=== PATIENT | female | born 1985 | race Hispanic/Latino ===

== ENCOUNTER 2016-12-19 09:58 | Emergency (ER) | payer OTHER ==
[2016-12-19 10:12] VITALS: BP 161/108
[2016-12-19 11:04] LABS: Basophils % (Auto) 0.2 % (0.0-1.8); Eosinophils % (Auto) 0.2 % (0.0-4.3); Hemoglobin 14.7 gm/dl (10.1-14.3); Mean Corpuscular HGB Conc 33 % (30-34); Mean Corpuscular Hemoglobin 33 pg (28-32); Mean Corpuscular Volume 97 fl (79-97); Platelet Count 126 K/mm3 (140-440); Red Blood Count 4.51 M/mm3 (3.65-5.03); Red Cell Distribution Width 12.8 % (13.2-15.2); White Blood Count 8.9 K/mm3 (4.5-11.0)
[2016-12-19 11:18] LABS: Anion Gap 26 mmol/L; Blood Urea Nitrogen 5 mg/dL (7-17); Calcium 9.1 mg/dL (8.4-10.2); Carbon Dioxide 17 mmol/L (22-30); Chloride 99.5 mmol/L (98-107); Glucose 85 mg/dL (65-100); Potassium 4.5 mmol/L (3.6-5.0); Sodium 138 mmol/L (137-145)
[2016-12-19 12:12] LABS: Bilirubin,Urine NEG (Negative); Blood,Urine NEG (Negative); Ketones,Urine NEG (Negative); Leukocyte Esterase,Urine NEG (Negative); Nitrite,Urine NEG (Negative); Protein,Urine <15 mg/dL mg/dL (Negative); Urobilinogen,Urine < 2.0 mg/dL (<2.0)
[2016-12-19 12:13] LABS: RBC,Urine < 1.0 /HPF (0.0-6.0); WBC,Urine < 1.0 /HPF (0.0-6.0)
== END 2016-12-19 20:00 | disposition left against medical advice (07) ==
LOC: ED 09:58
DX: R42 Dizziness and giddiness (principal); R51 Headache; Z53.21 Procedure and treatment not carried out due to patient leaving prior to being seen by health care provider
CPT/HCPCS: 36415; 80048; 81001; 81025; 85025

== ENCOUNTER 2017-03-21 16:30 | Emergency (ER) | payer SELFPAY ==
[2017-03-21 17:17] VITALS: BP 143/99
[2017-03-21] MEDS ORDERED: BOOSTRIX IM ONE (19:40)
[2017-03-21 20:05] LABS: Basophils % (Auto) 0.4 % (0.0-1.8); Eosinophils % (Auto) 0.3 % (0.0-4.3); Hematocrit 42.6 % (30.3-42.9); Hemoglobin 14.6 gm/dl (10.1-14.3); Mean Corpuscular HGB Conc 34 % (30-34); Mean Corpuscular Hemoglobin 33 pg (28-32); Mean Corpuscular Volume 97 fl (79-97); Platelet Count 127 K/mm3 (140-440); Red Cell Distribution Width 13.6 % (13.2-15.2); White Blood Count 7.2 K/mm3 (4.5-11.0)
[2017-03-21 20:14] LABS: INR 0.88 (0.87-1.13)
[2017-03-21 20:19] LABS: Partial Thromboplastin Time < 20.0 Sec. (24.2-36.6)
[2017-03-21 20:22] LABS: Albumin 4.9 g/dL (3.9-5); Albumin/Globulin Ratio 1.6 %; Alkaline Phosphatase 64 units/L (35-129); BUN/Creatinine Ratio 11.66; Blood Urea Nitrogen 7 mg/dL (7-17); Calcium 8.9 mg/dL (8.4-10.2); Carbon Dioxide 22 mmol/L (22-30); Chloride 105.9 mmol/L (98-107); Glucose 95 mg/dL (65-100); Sodium 147 mmol/L (137-145); Total Protein 7.9 g/dL (6.3-8.2)
[2017-03-21 20:32] LABS: Urine Drugs of Abuse Note Disclamer
[2017-03-21 20:51] LABS: Alanine Aminotransferase 50 units/L (7-56)
--- NOTE | 2017-03-21 20:54 | Emergency Department Report ---
ED General Adult HPI - General Chief complaint: Extremity Injury, Upper Stated complaint: POSS BROKEN FINGER Time Seen by Provider: 03/21/17 19:19 Source: patient, family (fiance ), EMS Mode of arrival: Ambulatory Limitations: No Limitations - History of Present Illness Initial comments: PT c/o L ring finger injury 2 weeks ago. PT states she was camping 2 weeks ago and she injured her finger when she was moving a tree. PT sates that she has had bruising and swelling to her L ring finger. PT states the swelling has recently gotten worse. PT also c/o red itchy rash under breasts x 5 days. PT states she had tried oatmeal baths without relief. Pt states she recently took in her neighbors kitten. PT states the kitten is still getting used to her and the kitten has scratched her. PT states she is concerned because she has lots of bruising on her arms from play wrestling with a friend yesterday. PT states she has a hx of panic attacks and anxiety, for her whole life. PT states that she is a pt [facility] but they took her off of Xanax ("the only thing that was helping") and put her on Zoloft 2 months ago. PT denies HI/SI. PT states "I don't want to hurt nobody" Complaint: finger injury/ rash/ bruising Location: upper extremity Severity scale (0 -10): 8 Quality: aching, sharp, constant Consistency: constant Improves with: none Worsens with: other (palpation, movement ) Associated Symptoms: denies: chest pain, cough, fever/chills, nausea/vomiting - Related Data Home Medications Medication Instructions Recorded Confirmed Last Taken busPIRone [Buspar] 10 mg PO BID 12/22/16 03/21/17 12/21/16 Quetiapine Fumarate [Seroquel] 100 mg PO HS 03/21/17 03/21/17 Unknown Sertraline HCl [Zoloft] 50 mg PO BID 03/21/17 03/21/17 Unknown Allergies Allergy/AdvReac Type Severity Reaction Status Date / Time No Known Allergies Allergy Verified 04/17/15 08:19 ED Review of Systems ROS: Stated complaint: POSS BROKEN FINGER Other details as noted in HPI Comment: All other systems reviewed and negative Constitutional: denies: chills, fever Respiratory: denies: cough, shortness of breath Cardiovascular: denies: chest pain Gastrointestinal: denies: abdominal pain Genitourinary: denies: dysuria, frequency, abnormal menses (pt states she is on implanon ) Skin: change in color, other (abrasions to bue, brusing to bue, rash under breasts.) Neurological: denies: headache Psychiatric: anxiety, other (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 denies: homicidal thoughts, suicidal thoughts Hematological/Lymphatic: easy bleeding (when brushing teeth ), easy bruising ED Past Medical Hx - Past Medical History Previous Medical History?: Yes Hx GERD: Yes Hx Psychiatric Treatment: Yes (panic attacks) Additional medical history: anxiety - Surgical History Past Surgical History?: Yes Additional Surgical History: left arm implanon placement - Family History Family history: no significant (from biological family ) - Social History Smoking Status: Current Every Day Smoker Substance Use Type: Alcohol, Prescribed - Medications Home Medications: Home Medications Medication Instructions Recorded Confirmed Last Taken Type busPIRone [Buspar] 10 mg PO BID 12/22/16 03/21/17 12/21/16 History Quetiapine Fumarate [Seroquel] 100 mg PO HS 03/21/17 03/21/17 Unknown History Sertraline HCl [Zoloft] 50 mg PO BID 03/21/17 03/21/17 Unknown History ED Physical Exam - General Limitations: No Limitations General appearance: alert, in no apparent distress, other (disheveled, smells of ETOH ) - Head Head exam: Present: atraumatic, normocephalic, normal inspection - Eye Eye exam: Present: normal appearance, PERRL, EOMI. Absent: scleral icterus, conjunctival injection, nystagmus Pupils: Present: normal accommodation - ENT ENT exam: Present: normal exam, normal external ear exam - Neck Neck exam: Present: normal inspection. Absent: tenderness - Respiratory Respiratory exam: Present: normal lung sounds bilaterally. Absent: respiratory distress - Cardiovascular Cardiovascular Exam: Present: regular rate, normal rhythm, normal heart sounds - GI/Abdominal GI/Abdominal exam: Present: soft. Absent: tenderness - Expanded Upper Extremity Exam Left Hand Wrist exam: Present: full ROM, tenderness (to left ring finger ), swelling , ecchymosis. Absent: dislocation, erythema Vascular: Present: radial pulse - Back Exam Back exam: Present: normal inspection, full ROM. Absent: tenderness, CVA tenderness (R), CVA tenderness (L) - Neurological Exam Neurological exam: Present: alert, oriented X3, CN II-XII intact, normal gait - Expanded Neurological Exam Expanded Neurological exam: Present: innattentive, other (pt has trouble remembering dates of injuries/ pt is speech is rapid and tangential but pt can be redirected ) Patient oriented to: Present: person, place, time Best Eye Response ([place]): (4) open spontaneously Best Motor Response ([place]): (6) obeys commands Best Verbal Response ([place]): (5) oriented [place] Total: 15 - Psychiatric Psychiatric exam: Present: normal affect, normal mood - Skin Skin exam: Present: warm, dry, normal color, erythema (yeast like rash under breasts), ecchymosis (multiple bruises to bue. multiple superfical abrasions to bue) ED Course Vital Signs 03/21/17 17:12 Temperature 98.2 F Pulse Rate 89 Respiratory 16 Rate Blood Pressure 143/99 O2 Sat by Pulse 99 Oximetry - Reevaluation(s) Reevaluation #1: 03/21/17 21:05 PT denies that any one is abusing her. PT states she feels safe at home. PT aware of plan of care. Reevaluation #2: 03/21/17 22:46 PT eloped prior to completion of work up. - Pulse Oximetry Interpretation Digit-Finger Initial Pulse Oximetry Readin Actions Taken: none ED Medical Decision Making - Lab Data Result diagrams: 03/21/17 19:53 03/21/17 19:53 - Radiology Data Radiology results: report reviewed, image reviewed L finger - impacted transverse comminuted fx of the base of the 4th distal phalanx - Differential Diagnosis elevated lfts, thrombocytopenia, finger fracture, substance abuse, anxiety, Critical Care Time: No Critical care attestation.: If time is entered above; I have spent that time in minutes in the direct care of this critically ill patient, excluding procedure time. ED Disposition Clinical Impression: Finger fracture, left, Need for Tdap vaccination Disposition: ELOPED Is pt being admited?: No Does the pt Need Aspirin: No Condition: Undetermined Referrals: PRIMARY CARE, [Primary Care Provider] - 3-5 Days
[2017-03-21 20:59] LABS: Anion Gap 23 mmol/L; Potassium 4.2 mmol/L (3.6-5.0)
[2017-03-21 21:00] LABS: Bacteria,Urine 1+ /HPF (Negative); Bilirubin,Urine NEG (Negative); Blood,Urine LG (Negative); Ketones,Urine NEG (Negative); Leukocyte Esterase,Urine MOD (Negative); Nitrite,Urine POS (Negative); Protein,Urine <15 mg/dL mg/dL (Negative); RBC,Urine < 1.0 /HPF (0.0-6.0); Urobilinogen,Urine < 2.0 mg/dL (<2.0); WBC,Urine < 1.0 /HPF (0.0-6.0)
--- NOTE | 2017-03-21 22:30 | XRay Report ---
FINAL REPORT EXAM: XR FINGER(S) 2 LT HISTORY: 4TH DIGIT, LEFT HAND pain TECHNIQUE: AP, lateral, and oblique views of the left 4th finger PRIORS: None. FINDINGS: There is an acute impacted transverse comminuted fracture through the base of the 4th distal phalanx. There is angulation of the fracture fragments with the apex directed in a volar direction. Overlying soft tissue swelling is present. There is no evidence for dislocation. No radiopaque foreign bodies are seen. Bony mineralization is normal and joint spaces are maintained. IMPRESSION: Acute fracture involving the base of the 4th distal phalanx.
== END 2017-03-21 22:48 | disposition left against medical advice (07) ==
LOC: ED 16:30
DX: S62.635A Displaced fracture of distal phalanx of left ring finger, initial encounter for closed fracture (principal); K21.9 Gastro-esophageal reflux disease without esophagitis; F17.200 Nicotine dependence, unspecified, uncomplicated; W22.8XXA Striking against or struck by other objects, initial encounter; Y93.9 Activity, unspecified; Y92.9 Unspecified place or not applicable; Y99.9 Unspecified external cause status
CPT/HCPCS: 36415; 80053; 80307; 81001; 81025; 85025; 85610; 85730; 87076; 87086; 87186; 90471; 90715; 99284

== ENCOUNTER 2018-03-10 08:18 | Emergency (ER) | payer OTHER ==
[2018-03-10] MEDS ORDERED: ASPIRIN PO ONE (08:31)
[2018-03-10 09:38] LABS: Basophils % (Auto) 0.5 % (0.0-1.8); Eosinophils # (Auto) 0.1 K/mm3 (0.0-0.4); Eosinophils % (Auto) 0.9 % (0.0-4.3); Hematocrit 42.5 % (30.3-42.9); Lymphocytes # (Auto) 2.1 K/mm3 (1.2-5.4); Lymphocytes % (Auto) 29.3 % (13.4-35.0); Mean Corpuscular HGB Conc 33 % (30-34); Mean Corpuscular Hemoglobin 32 pg (28-32); Mean Corpuscular Volume 97 fl (79-97); Monocytes # (Auto) 0.6 K/mm3 (0.0-0.8); Monocytes % (Auto) 8.6 % (0.0-7.3); Platelet Count 166 K/mm3 (140-440); Red Blood Count 4.39 M/mm3 (3.65-5.03); Red Cell Distribution Width 13.4 % (13.2-15.2)
[2018-03-10 09:51] LABS: BUN/Creatinine Ratio 26; Blood Urea Nitrogen 13 mg/dL (7-17); Calcium 9.3 mg/dL (8.4-10.2); Hemolysis Index 18
[2018-03-10] MEDS ORDERED: MOTRIN PO ONE (10:44)
[2018-03-10] MEDS ORDERED: TYLENOL PO ONE (10:44)
--- NOTE | 2018-03-10 10:44 | Emergency Department Report ---
ED General Adult HPI - General Chief complaint: Chest Pain Stated complaint: SHARP CP RAD TO ARM Time Seen by Provider: 03/10/18 10:15 Source: patient Mode of arrival: Ambulatory Limitations: No Limitations - History of Present Illness Initial comments: Patient is a 32-year-old female no significant past medical history who presents with chest wall pain also going on for last 2 weeks. Patient's chest wall pain is on the left side of her chest and radiates to her arm pressure makes it worse nothing makes it better. Patient denies having any shortness of breath or any hemoptysis. She states the pain is an 8 out of 10 it is intermittent. Patient denies smoking or drinking patient currently is unemployed. Severity scale (0 -10): 5 - Related Data Home Medications Medication Instructions Recorded Confirmed Last Taken busPIRone [Buspar] 10 mg PO BID 12/22/16 03/21/17 12/21/16 Quetiapine Fumarate [Seroquel] 100 mg PO HS 03/21/17 03/21/17 Unknown Sertraline HCl [Zoloft] 50 mg PO BID 03/21/17 03/21/17 Unknown Previous Rx's Medication Instructions Recorded Last Taken Type Diclofenac Sodium [Voltaren] 100 gm TP Q6H PRN #1 gel..gram. 03/10/18 Unknown Rx Allergies Allergy/AdvReac Type Severity Reaction Status Date / Time No Known Allergies Allergy Verified 03/10/18 08:26 ED Review of Systems ROS: Stated complaint: SHARP CP RAD TO ARM Other details as noted in HPI Constitutional: denies: chills, fever Eyes: denies: eye pain, eye discharge, vision change ENT: denies: ear pain, throat pain Respiratory: denies: cough, shortness of breath, wheezing Cardiovascular: chest pain. denies: palpitations Endocrine: no symptoms reported Gastrointestinal: denies: abdominal pain, nausea, diarrhea Genitourinary: denies: urgency, dysuria, discharge Musculoskeletal: denies: back pain, joint swelling, arthralgia Skin: denies: rash, lesions Neurological: denies: headache, weakness, paresthesias Psychiatric: denies: anxiety, depression Hematological/Lymphatic: denies: easy bleeding, easy bruising ED Past Medical Hx - Past Medical History Hx GERD: Yes Hx Psychiatric Treatment: Yes (panic attacks) Additional medical history: anxiety - Surgical History Additional Surgical History: left arm implanon placement - Social History Smoking Status: Never Smoker Substance Use Type: None - Medications Home Medications: Home Medications Medication Instructions Recorded Confirmed Last Taken Type busPIRone [Buspar] 10 mg PO BID 12/22/16 03/21/17 12/21/16 History Quetiapine Fumarate [Seroquel] 100 mg PO HS 03/21/17 03/21/17 Unknown History Sertraline HCl [Zoloft] 50 mg PO BID 03/21/17 03/21/17 Unknown History Diclofenac Sodium [Voltaren] 100 gm TP Q6H PRN #1 gel..gram. 03/10/18 Unknown Rx ED Physical Exam - General Limitations: No Limitations General appearance: alert, in no apparent distress - Head Head exam: Present: atraumatic, normocephalic - Eye Eye exam: Present: normal appearance - ENT ENT exam: Present: mucous membranes moist - Neck Neck exam: Present: normal inspection - Respiratory Respiratory exam: Present: normal lung sounds bilaterally. Absent: respiratory distress - Cardiovascular Cardiovascular Exam: Present: regular rate, normal rhythm. Absent: systolic murmur, diastolic murmur, rubs, gallop - GI/Abdominal GI/Abdominal exam: Present: soft, normal bowel sounds - Extremities Exam Extremities exam: Present: normal inspection - Back Exam Back exam: Present: normal inspection - Neurological Exam Neurological exam: Present: alert, oriented X3 - Psychiatric Psychiatric exam: Present: normal affect, normal mood - Skin Skin exam: Present: warm, dry, intact, normal color. Absent: rash ED Course Vital Signs 03/10/18 03/10/18 03/10/18 08:26 08:31 09:11 Temperature 98.6 F 98.3 F Pulse Rate 71 74 83 Respiratory 18 15 21 Rate Blood Pressure 126/84 Blood Pressure 124/77 [Left] O2 Sat by Pulse 99 97 99 Oximetry 03/10/18 03/10/18 03/10/18 09:16 09:30 09:45 Temperature Pulse Rate 73 68 86 Respiratory 16 18 16 Rate Blood Pressure 124/77 132/74 137/80 Blood Pressure [Left] O2 Sat by Pulse 96 99 89 Oximetry 03/10/18 03/10/18 03/10/18 10:00 10:16 10:30 Temperature Pulse Rate 87 76 63 Respiratory 15 13 16 Rate Blood Pressure 137/80 130/80 119/79 Blood Pressure [Left] O2 Sat by Pulse 100 98 91 Oximetry 03/10/18 03/10/18 03/10/18 10:45 11:02 11:15 Temperature Pulse Rate 75 76 67 Respiratory 14 16 17 Rate Blood Pressure 125/76 125/76 125/77 Blood Pressure [Left] O2 Sat by Pulse 97 92 97 Oximetry 03/10/18 03/10/18 11:36 11:37 Temperature Pulse Rate Respiratory 14 14 Rate Blood Pressure Blood Pressure [Left] O2 Sat by Pulse Oximetry ED Medical Decision Making - Lab Data Result diagrams: 03/10/18 08:56 03/10/18 08:56 Lab Results 03/10/18 03/10/18 03/10/18 Range/Units 08:56 08:56 10:47 WBC 7.0 (4.5-11.0) K/mm3 RBC 4.39 (3.65-5.03) M/mm3 Hgb 14.0 (10.1-14.3) gm/dl Hct 42.5 (30.3-42.9) % MCV 97 (79-97) fl MCH 32 (28-32) pg MCHC 33 (30-34) % RDW 13.4 (13.2-15.2) % Plt Count 166 (140-440) K/mm3 Lymph % (Auto) 29.3 (13.4-35.0) % [place] % (Auto) 8.6 H (0.0-7.3) % Eos % (Auto) 0.9 (0.0-4.3) % Baso % (Auto) 0.5 (0.0-1.8) % Lymph # 2.1 (1.2-5.4) K/mm3 [place] # 0.6 (0.0-0.8) K/mm3 Eos # 0.1 (0.0-0.4) K/mm3 Baso # 0.0 (0.0-0.1) K/mm3 Seg Neutrophils % 60.7 (40.0-70.0) % Seg Neutrophils # 4.3 (1.8-7.7) K/mm3 D-Dimer 49.28 (0-234) ng/mlDDU Sodium 139 (137-145) mmol/L Potassium 3.3 L (3.6-5.0) mmol/L Chloride 99.4 (98-107) mmol/L Carbon Dioxide 26 (22-30) mmol/L Anion Gap 17 mmol/L BUN 13 (7-17) mg/dL Creatinine 0.5 L (0.7-1.2) mg/dL Estimated GFR > 60 ml/min BUN/Creatinine Ratio 26 % Glucose 105 H (65-100) mg/dL Calcium 9.3 (8.4-10.2) mg/dL Troponin T < 0.010 (0.00-0.029) ng/mL - EKG Data -: EKG Interpreted by Me - EKG Data 03/10/18 12:46 EKG shows normal sinus rhythm no ST segment elevation or T-wave inversion - Radiology Data Radiology results: report reviewed, image reviewed Chest x-ray: Shows no acute cardiopulmonary disease. - Medical Decision Making Cdx: Costochondritis ddx: PTX, arrythmia, pulmonary embolism EKG, cbc, bmp, tropinin, d-dimer Patient's lab work is unremarkable I will send patient home with Voltaren and follow-up with primary care provider. Discussed outpatient and patient agrees with plan additional verbal discharge instructions were given. Critical care attestation.: If time is entered above; I have spent that time in minutes in the direct care of this critically ill patient, excluding procedure time. ED Disposition Clinical Impression: Costochondritis Disposition: DC-01 TO HOME OR SELFCARE Is pt being admited?: No Does the pt Need Aspirin: No Condition: Stable Instructions: Costochondritis (ED) Prescriptions: Diclofenac Sodium [Voltaren] 100 gm TP Q6H PRN #1 gel..gram. PRN Reason: Pain Referrals: SOUTH BERGER MD [Staff Physician] - 3-5 Days
--- NOTE | 2018-03-10 11:30 | XRay Report ---
Chest 2 views: Compared to 12/22/16. History: Shortness of breath. Findings: Normal cardiomediastinal silhouette. Trachea is midline. No consolidation, pneumothorax or pleural effusion. Impression: No acute cardiopulmonary findings.
[2018-03-10 12:35] VITALS: BP 125/77
[2018-03-10 12:53] LABS: Bilirubin,Urine NEG (Negative); Blood,Urine LG (Negative); Color,Urine Yellow (Yellow); Mucus,Urine FEW /HPF; Protein,Urine <15 mg/dL mg/dL (Negative); Urobilinogen,Urine < 2.0 mg/dL (<2.0)
== END 2018-03-10 13:05 | disposition home or self-care (01) ==
LOC: ED 08:18
DX: M94.0 Chondrocostal junction syndrome [Tietze] (principal); K21.9 Gastro-esophageal reflux disease without esophagitis
CPT/HCPCS: 36415; 71046; 80048; 81001; 84484; 85025; 85379; 93005; 93010; 99284

== ENCOUNTER 2022-02-16 11:55 | Emergency (ER) | payer SELFPAY ==
[2022-02-16 13:52] VITALS: BP 147/96
[2022-02-16 14:30] LABS: Bilirubin,Urine NEG (Negative); Blood,Urine NEG (Negative); Color,Urine Yellow (Yellow); Protein,Urine <15 mg/dL mg/dL (Negative); Urobilinogen,Urine < 2.0 mg/dL (<2.0)
[2022-02-16] MEDS ORDERED: SODIUM CHLORIDE 0.9% 1000 ML 1,000 ML IV ONE (14:43)
[2022-02-16] MEDS ORDERED: ONDANSETRON 4 MG/2 ML INJ IV ONE (14:43)
[2022-02-16 14:52] LABS: Basophils % (Auto) 0.2 % (0.0-1.8); Eosinophils % (Auto) 0.4 % (0.0-4.3); Hemoglobin 15.3 gm/dl (10.1-14.3); Lymphocytes # (Auto) 0.9 K/mm3 (1.2-5.4); Lymphocytes % (Auto) 19.8 % (13.4-35.0); Mean Corpuscular HGB Conc 35 % (30-34); Mean Corpuscular Volume 97 fl (79-97); Monocytes # (Auto) 0.4 K/mm3 (0.0-0.8); Monocytes % (Auto) 9.7 % (0.0-7.3); Platelet Count 103 K/mm3 (140-440); Red Blood Count 4.52 M/mm3 (3.65-5.03); Red Cell Distribution Width 12.1 % (13.2-15.2)
[2022-02-16 15:07] LABS: Blood Urea Nitrogen 4 mg/dL (7-17); Calcium 9.4 mg/dL (8.4-10.2); Hemolysis Index 4
--- NOTE | 2022-02-16 15:09 | Emergency Department Report ---
ED Abdominal Pain HPI - General Chief Complaint: Abdominal Pain Stated Complaint: ABD/FLANK PAIN PUI?: No Time Seen by Provider: 02/16/22 14:43 Source: patient Mode of arrival: Ambulatory Limitations: No Limitations - History of Present Illness Initial Comments: Ms. Rudolph is a 36-year-old female that comes to the emergency room with a 2-day history of nausea vomiting and diarrhea. She has no fever or chills. She has no back pain, dysuria or vaginal discharge. She was ambulatory to the ER. Patient states she does not really have abdominal pain is just cramping when she has nausea, vomiting or diarrhea. MD Complaint: abdominal pain -: Gradual, days(s) Location: diffuse Migration to: no migration Severity: mild Quality: cramping Consistency: intermittent Improves With: nothing Worsens With: eating Associated Symptoms: nausea, vomiting, diarrhea - Related Data Home Medications Medication Instructions Recorded Confirmed Last Taken busPIRone [Buspar] 10 mg PO BID 12/22/16 03/21/17 12/21/16 Quetiapine Fumarate [Seroquel] 100 mg PO HS 03/21/17 03/21/17 Unknown Sertraline HCl [Zoloft] 50 mg PO BID 03/21/17 03/21/17 Unknown Previous Rx's Medication Instructions Recorded Last Taken Type Diclofenac Sodium [Voltaren] 100 gm TP Q6H PRN #1 gel..gram. 03/10/18 Unknown Rx Ondansetron [Zofran Odt] 4 mg PO Q8HR PRN #10 tab.rapdis 02/16/22 Unknown Rx Allergies Allergy/AdvReac Type Severity Reaction Status Date / Time No Known Allergies Allergy Verified 02/16/22 13:52 ED Review of Systems ROS: Stated complaint: ABD/FLANK PAIN Other details as noted in HPI Comment: All other systems reviewed and negative ED Past Medical Hx - Past Medical History Previous Medical History?: Yes Hx Hypertension: Yes Hx GERD: Yes Hx Psychiatric Treatment: Yes (panic attacks) Additional medical history: anxiety - Surgical History Past Surgical History?: Yes Additional Surgical History: left arm implanon placement - Family History Family history: no significant - Social History Smoking Status: Never Smoker Substance Use Type: None - Medications Home Medications: Home Medications Medication Instructions Recorded Confirmed Last Taken Type busPIRone [Buspar] 10 mg PO BID 0203/21/17 12/21/16 History Quetiapine Fumarate [Seroquel] 100 mg PO HS 03/21/17 03/21/17 Unknown History Sertraline HCl [Zoloft] 50 mg PO BID 03/21/17 03/21/17 Unknown History Diclofenac Sodium [Voltaren] 100 gm TP Q6H PRN #1 gel..gram. 03/10/18 Unknown Rx Ondansetron [Zofran Odt] 4 mg PO Q8HR PRN #10 tab.rapdis 02/16/22 Unknown Rx ED Physical Exam - General Limitations: No Limitations General appearance: alert, in no apparent distress - Head Head exam: Present: atraumatic, normocephalic - Eye Eye exam: Present: normal appearance - ENT ENT exam: Present: mucous membranes moist - Neck Neck exam: Present: normal inspection - Respiratory Respiratory exam: Present: normal lung sounds bilaterally. Absent: respiratory distress - Cardiovascular Cardiovascular Exam: Present: regular rate, normal rhythm. Absent: systolic murmur, diastolic murmur, rubs, gallop - GI/Abdominal GI/Abdominal exam: Present: soft, normal bowel sounds - Extremities Exam Extremities exam: Present: normal inspection - Back Exam Back exam: Present: normal inspection - Neurological Exam Neurological exam: Present: alert, oriented X3 - Psychiatric Psychiatric exam: Present: normal affect, normal mood - Skin Skin exam: Present: warm, dry, intact, normal color. Absent: rash ED Course Vital Signs 02/16/22 13:50 Temperature 98.5 F Pulse Rate 81 Respiratory 20 Rate Blood Pressure 147/96 O2 Sat by Pulse 96 Oximetry ED Medical Decision Making - Lab Data Result diagrams: 02/16/22 14:18 02/16/22 14:18 - Medical Decision Making Vital Signs 02/16/22 13:50 Temperature 98.5 F Pulse Rate 81 Respiratory 20 Rate Blood Pressure 147/96 O2 Sat by Pulse 96 Oximetry Labs 02/16/22 02/16/22 02/16/22 14:18 14:18 14:18 WBC 4.3 L RBC 4.52 Hgb 15.3 H Hct 44.0 H MCV 97 MCH 34 H MCHC 35 H RDW 12.1 L Plt Count 103 L Lymph % (Auto) 19.8 [place] % (Auto) 9.7 H Eos % (Auto) 0.4 Baso % (Auto) 0.2 Lymph # (Auto) 0.9 L [place] # (Auto) 0.4 Eos # (Auto) 0.0 Baso # (Auto) 0.0 Seg Neutrophils % 69.9 Seg Neutrophils # 3.0 Sodium 138 Potassium 3.1 L Chloride 96.6 L Carbon Dioxide 23 Anion Gap 22 BUN 4 L Creatinine 0.5 L Estimated GFR > 60 BUN/Creatinine Ratio 8 Glucose 116 H Calcium 9.4 Lipase 53 HCG, Qual Negative Urine Color Urine Turbidity Urine pH Ur Specific [place] Urine Protein Urine Glucose (UA) Urine Ketones Urine Blood Urine Nitrite Urine Bilirubin Urine Urobilinogen Ur Leukocyte Esterase Urine WBC (Auto) Urine RBC (Auto) U Epithel Cells (Auto) 02/16/22 Unknown WBC RBC Hgb Hct MCV MCH MCHC RDW Plt Count Lymph % (Auto) [place] % (Auto) Eos % (Auto) Baso % (Auto) Lymph # (Auto) [place] # (Auto) Eos # (Auto) Baso # (Auto) Seg Neutrophils % Seg Neutrophils # Sodium Potassium Chloride Carbon Dioxide Anion Gap BUN Creatinine Estimated GFR BUN/Creatinine Ratio Glucose Calcium Lipase HCG, Qual Urine Color Yellow Urine Turbidity Clear Urine pH 7.0 Ur Specific [place] 1.003 Urine Protein <15 mg/dl Urine Glucose (UA) Neg Urine Ketones Tr Urine Blood Neg Urine Nitrite Neg Urine Bilirubin Neg Urine Urobilinogen < 2.0 Ur Leukocyte Esterase Neg Urine WBC (Auto) 1.0 Urine RBC (Auto) 1.0 U Epithel Cells (Auto) 12.0 Abdominal exam is unremarkable. She has no tenderness. No CVA tenderness. No fever. test negative Lipase normal UA noted Labs noted K replaced INT/1 L normal saline and Zofran given while in the ER. Prior to discharge patient was given p.o. challenge. Patient being discharged home with discharge plan of care including diet, act ivity, medications and follow-up. She verbalizes understanding of plan of care - Differential Diagnosis Gastroenteritis rule out cholecystitis, rule out UTI, rule out Critical care attestation.: If time is entered above; I have spent that time in minutes in the direct care of this critically ill patient, excluding procedure time. ED Disposition Clinical Impression: Gastroenteritis Disposition: HOME / SELF CARE / HOMELESS Is pt being admited?: No Does the pt Need Aspirin: No Condition: Stable Instructions: Viral Gastroenteritis, Adult, Abdominal Pain (ED) Additional Instructions: Stay well-hydrated with water Tylenol or Motrin for pain [place] diet Bananas, rice applesauce and toast Then slowly introduce food In 48 hours follow-up with PCP and/or GI doctor to make sure you are getting better Referrals have been given below Referrals: ROSA STOKES MD [Staff Physician] - 3-5 Days CYN SEGUNDO MD [Referring] - 3-5 Days ALONDRA GARAY MD [Staff Physician] - 3-5 Days Forms: Work/School Release Form(ED) Time of Disposition: 15:24
[2022-02-16 15:11] LABS: BUN/Creatinine Ratio 8
[2022-02-16] MEDS ORDERED: POTASSIUM CHLORIDE ER 20 MEQ TAB PO ONE (15:19)
[2022-02-16] MEDS ORDERED: MORPHINE 2 MG/1 ML INJ IV ONE (15:26)
[2022-02-16] MEDS ORDERED: DICYCLOMINE 10 MG/5 ML ORAL LIQD PO ONE (15:45)
== END 2022-02-16 17:30 | disposition home or self-care (01) ==
LOC: ED 11:55
DX: K52.9 Noninfective gastroenteritis and colitis, unspecified (principal); I10 Essential (primary) hypertension
CPT/HCPCS: 36415; 80048; 81001; 83690; 84703; 85025; 96361; 96374; 96375; 99283; J2270; J2405; J7030; Q0162